=== PATIENT | male | born 1955 | race Hispanic/Latino ===

== ENCOUNTER 2021-08-07 11:45 | Outpatient (CLI) | payer MEDICARE | END 2021-08-07 11:46 | disposition home or self-care (01) | LOC: PET 11:45 | PROVIDERS: ATTEND Internal Medicine Hematology & Oncology | DX: C16.3 Malignant neoplasm of pyloric antrum (principal); D50.0 Iron deficiency anemia secondary to blood loss (chronic) | CPT/HCPCS: 78815; A9552 ==

== ENCOUNTER 2022-01-07 08:35 | Outpatient (CLI) | payer MEDICARE ==
[2022-01-07] MEDS ORDERED: Iopamidol 300 61% 50 ML VIAL FS ONE (09:09)
== END 2022-01-07 08:36 | disposition home or self-care (01) ==
LOC: RAD 08:35
PROVIDERS: ATTEND Internal Medicine Hematology & Oncology
DX: Z45.2 Encounter for adjustment and management of vascular access device (principal); T82.598A Other mechanical complication of other cardiac and vascular devices and implants, initial encounter; C16.3 Malignant neoplasm of pyloric antrum; D50.0 Iron deficiency anemia secondary to blood loss (chronic)
CPT/HCPCS: 36598; Q9967

== ENCOUNTER 2022-01-12 16:37 | Inpatient (IN) | payer MEDICARE ==
[2022-01-12 17:28] LABS: Hemoglobin 8.5 g/dL (14.0-18.0); Mean Corpuscular HGB CONC 34.7 g/dL (32.0-36.0); Mean Corpuscular Hemoglobin 33.8 pg (27.0-31.0); Mean Corpuscular Volume 97.3 fL (78.0-98.0); RBC Distribution Width 13.4 % (11.5-14.5); Red Blood Cell (RBC) Count 2.51 mill/uL (4.70-6.10)
[2022-01-12 17:36] LABS: Bacteria/HPF None Seen HPF (None Seen); Bilirubin Negative (Negative); Blood, Urine Trace (Negative); Clarity Clear (Clear); Glucose, Urine (Dipstick) Greater than 1000 mg/dL (Negative); Ketone, Urine Negative (Negative); Leukocyte Negative Leu/uL (Negative); Nitrite Negative (Negative); Protein, Urine (Dipstick) 30 mg/dL (Neg-Trace); RBC/HPF 0-3 HPF (0-3); Specific Gravity, Urine 1.023 (1.002-1.036); Squamous Epithelial 0-3 HPF (0-3); Urobilinogen Normal mg/dL (Less than 2); WBC/HPF 0-3 HPF (0-3)
[2022-01-12 17:40] LABS: ALT (SGPT) 37 U/L (8-55); AST (SGOT) 34 U/L (5-34); Alkaline Phosphatase 144 U/L (40-110); Anion Gap 15 mmol/L (10-20); BUN (Urea Nitrogen) 81 mg/dL (8.4-25.7); Bilirubin, Total 0.2 mg/dL (0.2-1.2); CK (CPK) 80 U/L (30-200); Calc. Creatinine Clearance 0 mL/min (70-130); Calcium 8.3 mg/dL (7.8-10.44); Carbon Dioxide 22 mmol/L (23-31); Chloride 98 mmol/L (98-107); Estimated GFR 36; Globulin 2.3 g/dL (2.4-3.5); Potassium 4.8 mmol/L (3.5-5.1); Protein, Total 5.3 g/dL (5.8-8.1); Sodium 130 mmol/L (136-145)
[2022-01-12 17:45] LABS: Band 3 % (5-11); Lymphocytes 5 % (21-51); MDiff Complete? YES; Mean Platelet Volume 10.3 fL (7.4-10.4); Microcytosis SLIGHT = 6-15 cells (100X) (0-5/hpf); Neutrophil 89 % (42-75); Nucleated RBC 1 % (0); Platelet Count 102 thou/uL (130-400); Platelet Morphology Comment Appears Decreased; Reactive Lymphocytes 3 % (0-10)
[2022-01-12 17:49] LABS: Glucose 748 mg/dL (80-115)
[2022-01-12] MEDS ORDERED: Insulin Regular 300 UNITS/3 ML VIAL ONE (18:17)
[2022-01-12] MEDS ORDERED: Piperacillin/Tazobactam 3.375 GM VIAL ONE (18:17)
[2022-01-12 18:41] LABS: Actual Bicarbonate (HCO3v) 22 mEq/L (22-28); Analyzer IN Cardio ER; Base Excess -3.3 mEq/L (-2.0 to +3.0); Calcium, Ionized (venous) 1.02 mmol/L (1.16-1.32); Chloride (VBG) 101 mmol/L (98-106); Potassium (VBG) 4.43 mmol/L (3.70-5.30); Sodium 128.7 mmol/L (133-146); pH (venous) 7.37 (7.32-7.43)
[2022-01-12] MEDS ORDERED: Ondansetron PF 4 MG/2 ML Vial IVP PRN (20:00)
[2022-01-12] MEDS ORDERED: Ondansetron ODT 4 MG TAB SL PRN (20:00)
[2022-01-12] MEDS ORDERED: Acetaminophen 325 MG TAB PO PRN (20:00)
[2022-01-12] MEDS ORDERED: Dextrose 5% in Water 1,000 ML IV PRN ×2 (20:23→20:50)
[2022-01-12] MEDS ORDERED: HumaLOG 300 UNITS/3 ML VIAL SC PRN (20:23)
[2022-01-12] MEDS ORDERED: Acetaminophen 650 MG Suppository PR PRN (20:23)
[2022-01-12] MEDS ORDERED: Dextrose 50% Abboject 50 ML SYRINGE SLOW IVP PRN ×2 (20:23→20:50)
[2022-01-12 20:31] LABS: Lactic Acid 2.5 mmol/L (0.5-2.2)
[2022-01-12] MEDS ORDERED: Metoprolol Tartrate 5 MG/5 ML VIAL ONE ×2 (22:13→22:19)
[2022-01-12] MEDS ORDERED: Digoxin 0.5 MG/2 ML AMP ONE (22:25)
[2022-01-12] MEDS ORDERED: Fentanyl 100 MCG/2 ML VIAL ONE (22:25)
[2022-01-13] MEDS: Sodium Chloride 0.9% 1,000 ML IV SCH ×4 (00:40→05:30)
[2022-01-13] MEDS: HumaLOG 300 UNITS/3 ML VIAL SC PRN ×7 (00:51→20:13)
[2022-01-13] MEDS ORDERED: Amiodarone 150 MG, Admixture Fee 1 EACH in Dextrose 5% in Water 100 ML IVPB SCH (01:00)
[2022-01-13] MEDS ORDERED: Enoxaparin Sodium 80 MG/0.8 ML SYRINGE SC SCH (01:00)
[2022-01-13] MEDS: Amiodarone 450 MG, Admixture Fee 1 EACH in Dextrose 5% in Water 250 ML IVPB SCH (01:21)
[2022-01-13 01:26] LABS: Chloride 95 mmol/L (98-107); Sodium 126 mmol/L (136-145)
[2022-01-13] MEDS: Piperacillin/Tazobactam 3.375 GM in Sodium Chloride 0.9% 100 ML IVPB SCH ×3 (01:32→15:44)
[2022-01-13 01:58] LABS: Glucose 445 mg/dL (80-115); Lactic Acid 1.7 mmol/L (0.5-2.2)
[2022-01-13 02:00] LABS: Anion Gap 10 mmol/L (10-20); Carbon Dioxide 19 mmol/L (23-31)
[2022-01-13 02:02] LABS: Calc. Creatinine Clearance 51 mL/min (70-130); Estimated GFR 51
[2022-01-13 02:03] LABS: BUN (Urea Nitrogen) 62 mg/dL (8.4-25.7)
[2022-01-13 03:50] LABS: Hemoglobin A1c 12.8 % (4.0-6.0)
[2022-01-13 04:26] LABS: Band 4 % (5-11); Hemoglobin 6.6 g/dL (14.0-18.0); Lymphocytes 6 % (21-51); MDiff Complete? YES; Mean Corpuscular HGB CONC 33.6 g/dL (32.0-36.0); Mean Corpuscular Hemoglobin 32.9 pg (27.0-31.0); Mean Corpuscular Volume 97.9 fL (78.0-98.0); Mean Platelet Volume 10.6 fL (7.4-10.4); Neutrophil 90 % (42-75); Platelet Count 75 thou/uL (130-400); Platelet Morphology Comment Appears Decreased; RBC Distribution Width 13.3 % (11.5-14.5); White Blood Cell (WBC) Count 11.6 thou/uL (4.8-10.8)
[2022-01-13] MEDS ORDERED: Insulin Glargine 30 UNITS/0.3 ML VIAL SC SCH (08:45)
[2022-01-13] MEDS ORDERED: Digoxin 0.5 MG/2 ML AMP ONE (08:50)
[2022-01-13] MEDS ORDERED: FLU VACC QS2022-23(65YR UP)/PF 240 MCG/0.7 ML SYRINGE IM ONE (09:00)
[2022-01-13] MEDS ORDERED: Enoxaparin Sodium 40 MG/0.4 ML SYRINGE SC SCH (09:00)
[2022-01-13] MEDS: Digoxin 0.5 MG/2 ML AMP SLOW IVP SCH ×3 (09:05→20:06)
[2022-01-13 10:33] LABS: Bilirubin, Total 0.2 mg/dL (0.2-1.2); Iron 146 ug/dL (65-175); Iron Binding Capacity, Total 184 mcg/dL (261-462); Sodium 140 mmol/L (136-145)
[2022-01-13 14:19] LABS: Reticulocyte Count 3.5 % (0.5-1.5)
[2022-01-13 14:35] LABS: Magnesium 1.9 mg/dL (1.6-2.6)
[2022-01-13 14:41] LABS: INR-International Normal Ratio 1.1; Prothrombin Time 13.9 sec (12.0-14.7)
[2022-01-13 14:42] LABS: PTT 24.5 sec (22.9-36.1)
[2022-01-13 14:55] LABS: Ferritin 424.48 ng/mL (22-322); Thyroid Stimulating Hormone 0.835 uIU/mL (0.35-4.94)
[2022-01-13] MEDS ORDERED: Metoprolol Tartrate 5 MG/5 ML VIAL ONE (15:43)
[2022-01-13] MEDS ORDERED: Metoprolol Tartrate 5 MG/5 ML VIAL IVP PRN (17:38)
[2022-01-14] MEDS: Piperacillin/Tazobactam 3.375 GM in Sodium Chloride 0.9% 100 ML IVPB SCH ×3 (01:16→16:58)
[2022-01-14] MEDS: Amiodarone 450 MG, Admixture Fee 1 EACH in Dextrose 5% in Water 250 ML IVPB SCH ×2 (01:17→13:20)
[2022-01-14 04:32] LABS: Anion Gap 14 mmol/L (10-20); BUN (Urea Nitrogen) 32 mg/dL (8.4-25.7); Calc. Creatinine Clearance 56 mL/min (70-130); Calcium 7.8 mg/dL (7.8-10.44); Carbon Dioxide 18 mmol/L (23-31); Chloride 111 mmol/L (98-107); Estimated GFR 57; Glucose 290 mg/dL (80-115); Potassium 4.1 mmol/L (3.5-5.1); Sodium 139 mmol/L (136-145)
[2022-01-14 04:52] LABS: #Lymphocytes 2.2 thou/uL (1.20-3.40); #Monocytes 0.1 thou/uL (0.11-0.59); #Neutrophils 7.4 thou/uL (1.40-6.50); %Basophils 0.1 % (0.0-1.0); %Eosinophils 0.2 % (0.0-10.0); %Lymphocytes 22.4 % (21.0-51.0); %Monocytes 0.6 % (0.0-10.0); %Neutrophils 76.7 % (42.0-75.0); Hemoglobin 9.1 g/dL (14.0-18.0); Mean Corpuscular HGB CONC 34.9 g/dL (32.0-36.0); Mean Corpuscular Volume 94.7 fL (78.0-98.0); Mean Platelet Volume 10.7 fL (7.4-10.4); Platelet Count 84 thou/uL (130-400); RBC Distribution Width 14.5 % (11.5-14.5); Red Blood Cell (RBC) Count 2.77 mill/uL (4.70-6.10); White Blood Cell (WBC) Count 9.7 thou/uL (4.8-10.8)
[2022-01-14] MEDS: HumaLOG 300 UNITS/3 ML VIAL SC PRN ×3 (06:13→20:03)
[2022-01-14] MEDS ORDERED: Insulin Glargine 30 UNITS/0.3 ML VIAL SC SCH ×2 (09:00→10:00)
[2022-01-15] MEDS: Piperacillin/Tazobactam 3.375 GM in Sodium Chloride 0.9% 100 ML IVPB SCH ×3 (01:03→16:30)
[2022-01-15] MEDS: HumaLOG 300 UNITS/3 ML VIAL SC PRN ×2 (05:55→21:15)
[2022-01-15 07:44] LABS: Anion Gap 11 mmol/L (10-20); BUN (Urea Nitrogen) 23 mg/dL (8.4-25.7); Calc. Creatinine Clearance 57 mL/min (70-130); Calcium 8.1 mg/dL (7.8-10.44); Carbon Dioxide 21 mmol/L (23-31); Chloride 109 mmol/L (98-107); Estimated GFR 58; Glucose 267 mg/dL (80-115); Potassium 3.6 mmol/L (3.5-5.1); Sodium 137 mmol/L (136-145)
[2022-01-15 08:03] LABS: #Lymphocytes 1.1 thou/uL (1.20-3.40); #Neutrophils 3.7 thou/uL (1.40-6.50); %Basophils 0.2 % (0.0-1.0); %Eosinophils 0.6 % (0.0-10.0); %Lymphocytes 22.3 % (21.0-51.0); %Monocytes 0.4 % (0.0-10.0); %Neutrophils 76.5 % (42.0-75.0); Hemoglobin 8.8 g/dL (14.0-18.0); MDiff Complete? YES; Mean Corpuscular HGB CONC 34.2 g/dL (32.0-36.0); Mean Corpuscular Hemoglobin 32.1 pg (27.0-31.0); Mean Corpuscular Volume 93.7 fL (78.0-98.0); Mean Platelet Volume 10.7 fL (7.4-10.4); Platelet Count 83 thou/uL (130-400); Platelet Morphology Comment Appears Decreased; Polychromasia SLIGHT = 2-3 cells (100X) (0-2/hpf); RBC Distribution Width 13.9 % (11.5-14.5); Red Blood Cell (RBC) Count 2.75 mill/uL (4.70-6.10); White Blood Cell (WBC) Count 4.9 thou/uL (4.8-10.8)
[2022-01-15] MEDS: Thiamine 100 MG TAB PO SCH (08:54)
[2022-01-15] MEDS: Folic Acid 1 MG TAB PO SCH (08:54)
[2022-01-15] MEDS ORDERED: PEGFILGRASTIM-JMDB 6 MG/0.6 ML SYRINGE SQ SCH ×2 (09:00→14:00)
[2022-01-15] MEDS ORDERED: Insulin Glargine 30 UNITS/0.3 ML VIAL SC SCH ×2 (09:00→10:00)
[2022-01-15 09:45] LABS: #Lymphocytes 1.1 thou/uL (1.20-3.40); #Neutrophils 3.6 thou/uL (1.40-6.50); %Basophils 0.2 % (0.0-1.0); %Lymphocytes 23.6 % (21.0-51.0); %Monocytes 0.4 % (0.0-10.0); %Neutrophils 74.9 % (42.0-75.0); Hemoglobin 8.9 g/dL (14.0-18.0); Mean Corpuscular HGB CONC 32.8 g/dL (32.0-36.0); Mean Corpuscular Volume 94.6 fL (78.0-98.0); Mean Platelet Volume 10.4 fL (7.4-10.4); Platelet Count 89 thou/uL (130-400); RBC Distribution Width 13.9 % (11.5-14.5); Red Blood Cell (RBC) Count 2.87 mill/uL (4.70-6.10); White Blood Cell (WBC) Count 4.8 thou/uL (4.8-10.8)
[2022-01-15 15:59] LABS: SARS-CoV-2 NAA Rapid Test Not Detected (NotDetected)
[2022-01-15] MEDS: Amiodarone 450 MG, Admixture Fee 1 EACH in Dextrose 5% in Water 250 ML IVPB SCH (21:53)
[2022-01-16] MEDS: Piperacillin/Tazobactam 3.375 GM in Sodium Chloride 0.9% 100 ML IVPB SCH ×3 (01:44→16:47)
[2022-01-16 04:33] LABS: Anion Gap 12 mmol/L (10-20); BUN (Urea Nitrogen) 19 mg/dL (8.4-25.7); Calc. Creatinine Clearance 63 mL/min (70-130); Calcium 7.9 mg/dL (7.8-10.44); Carbon Dioxide 20 mmol/L (23-31); Chloride 110 mmol/L (98-107); Estimated GFR 65; Glucose 189 mg/dL (80-115); Potassium 3.4 mmol/L (3.5-5.1); Sodium 139 mmol/L (136-145)
[2022-01-16 05:01] LABS: Band 6 % (5-11); Hemoglobin 8.3 g/dL (14.0-18.0); Lymphocytes 4 % (21-51); MDiff Complete? YES; Mean Corpuscular HGB CONC 32.9 g/dL (32.0-36.0); Mean Corpuscular Hemoglobin 31.1 pg (27.0-31.0); Mean Corpuscular Volume 94.4 fL (78.0-98.0); Mean Platelet Volume 10.8 fL (7.4-10.4); Neutrophil 90 % (42-75); Platelet Count 85 thou/uL (130-400); Platelet Morphology Comment Appears Decreased; RBC Distribution Width 13.7 % (11.5-14.5); Red Blood Cell (RBC) Count 2.68 mill/uL (4.70-6.10); White Blood Cell (WBC) Count 15.6 thou/uL (4.8-10.8)
[2022-01-16] MEDS: Thiamine 100 MG TAB PO SCH (09:44)
[2022-01-16] MEDS: Folic Acid 1 MG TAB PO SCH (09:44)
[2022-01-16] MEDS: Insulin Glargine 30 UNITS/0.3 ML VIAL SC SCH (09:45)
[2022-01-16] MEDS: HumaLOG 300 UNITS/3 ML VIAL SC PRN ×2 (11:08→16:47)
[2022-01-16] MEDS: Amiodarone 200 MG TAB PO SCH ×2 (15:31→20:37)
[2022-01-16] MEDS ORDERED: Atorvastatin Calcium 20 MG TAB PO SCH (21:00)
[2022-01-17] MEDS: Piperacillin/Tazobactam 3.375 GM in Sodium Chloride 0.9% 100 ML IVPB SCH ×2 (01:00→08:17)
[2022-01-17 04:31] LABS: Anion Gap 10 mmol/L (10-20); BUN (Urea Nitrogen) 17 mg/dL (8.4-25.7); Calc. Creatinine Clearance 67 mL/min (70-130); Calcium 7.9 mg/dL (7.8-10.44); Carbon Dioxide 22 mmol/L (23-31); Chloride 110 mmol/L (98-107); Estimated GFR 69; Glucose 135 mg/dL (80-115); Potassium 3.1 mmol/L (3.5-5.1); Sodium 139 mmol/L (136-145)
[2022-01-17 04:49] LABS: Band 10 % (5-11); Eosinophils 1 % (0-10); Hemoglobin 7.6 g/dL (14.0-18.0); Lymphocytes 8 % (21-51); MDiff Complete? YES; Mean Corpuscular HGB CONC 33.4 g/dL (32.0-36.0); Mean Corpuscular Hemoglobin 31.3 pg (27.0-31.0); Mean Corpuscular Volume 93.8 fL (78.0-98.0); Mean Platelet Volume 10.8 fL (7.4-10.4); Neutrophil 81 % (42-75); Platelet Count 91 thou/uL (130-400); Platelet Morphology Comment Appears Decreased; RBC Distribution Width 13.6 % (11.5-14.5); Red Blood Cell (RBC) Count 2.43 mill/uL (4.70-6.10); White Blood Cell (WBC) Count 9.8 thou/uL (4.8-10.8)
[2022-01-17 05:26] VITALS: BMI 28.1
[2022-01-17] MEDS: Thiamine 100 MG TAB PO SCH (08:17)
[2022-01-17] MEDS: Amiodarone 200 MG TAB PO SCH ×2 (08:17→15:32)
[2022-01-17] MEDS: Insulin Glargine 30 UNITS/0.3 ML VIAL SC SCH (08:17)
[2022-01-17] MEDS: Folic Acid 1 MG TAB PO SCH (08:17)
[2022-01-17] MEDS ORDERED: Potassium Chloride 20 MEQ TAB PO SCH (10:15)
[2022-01-17 12:45] VITALS: TEMP 98.6
== END 2022-01-17 16:10 | disposition home or self-care (01) | DRG 638 ==
LOC: ERS 16:37 → IMCU/EMU 19:30
PROVIDERS: ADMIT Internal Medicine; ATTEND Internal Medicine
PROC: 30233N1 Transfusion of Nonautologous Red Blood Cells into Peripheral Vein, Percutaneous Approach (ICD-10-PCS; principal; 2022-01-13)
DX: E11.65 Type 2 diabetes mellitus with hyperglycemia (principal); C16.9 Malignant neoplasm of stomach, unspecified; I48.92 Unspecified atrial flutter; N17.9 Acute kidney failure, unspecified; E87.20 Acidosis, unspecified; R65.10 Systemic inflammatory response syndrome (SIRS) of non-infectious origin without acute organ dysfunction; E87.1 Hypo-osmolality and hyponatremia; Z20.822 Contact with and (suspected) exposure to COVID-19; I25.10 Atherosclerotic heart disease of native coronary artery without angina pectoris; I10 Essential (primary) hypertension; I48.91 Unspecified atrial fibrillation; D64.81 Anemia due to antineoplastic chemotherapy; T45.1X5A Adverse effect of antineoplastic and immunosuppressive drugs, initial encounter; D53.9 Nutritional anemia, unspecified; D69.59 Other secondary thrombocytopenia; E86.1 Hypovolemia; D75.9 Disease of blood and blood-forming organs, unspecified; R19.5 Other fecal abnormalities; Z88.0 Allergy status to penicillin; Z98.890 Other specified postprocedural states; Z28.21 Immunization not carried out because of patient refusal; Z95.1 Presence of aortocoronary bypass graft; Z87.11 Personal history of peptic ulcer disease; Z82.49 Family history of ischemic heart disease and other diseases of the circulatory system; Z79.899 Other long term (current) drug therapy; Z79.84 Long term (current) use of oral hypoglycemic drugs; T50.2X5A Adverse effect of carbonic-anhydrase inhibitors, benzothiadiazides and other diuretics, initial encounter; Z87.891 Personal history of nicotine dependence
CPT/HCPCS: 36415; 36416; 36430; 71045; 74176; 80048; 80053; 81003; 81015; 82010; 82247; 82274; 82550; 82728; 82805; 83010; 83036; 83540; 83550; 83605; 83615; 83690; 83735; 83935; 84443; 84484; 85025; 85046; 85610; 85730; 86850; 86900; 86901; 87040; 93005; 93306; 96361; 96374; 96375; J0282; J1160; J1650; J1815; J2543; J3010; J3490; J7050; J7070; P9016; Q5108; U0002

== ENCOUNTER 2022-01-28 18:33 | Emergency (ER) | payer MEDICARE ==
[~2022-01-28 18:33] MED LIST: Iopamidol-370 76% 500 ML 1 ML ONE
[2022-01-28 19:25] LABS: Hemoglobin 8.3 g/dL (14.0-18.0); Mean Corpuscular HGB CONC 32.5 g/dL (32.0-36.0); Mean Corpuscular Hemoglobin 30.4 pg (27.0-31.0); Mean Corpuscular Volume 93.8 fL (78.0-98.0); Mean Platelet Volume 10.1 fL (7.4-10.4); Platelet Count 126 thou/uL (130-400); RBC Distribution Width 15.2 % (11.5-14.5); Red Blood Cell (RBC) Count 2.73 mill/uL (4.70-6.10); White Blood Cell (WBC) Count 26.4 thou/uL (4.8-10.8)
[2022-01-28 19:36] LABS: ALT (SGPT) 14 U/L (8-55); AST (SGOT) 21 U/L (5-34); Albumin 2.6 g/dL (3.4-4.8); Alkaline Phosphatase 161 U/L (40-110); Anion Gap 10 mmol/L (10-20); BUN (Urea Nitrogen) 23 mg/dL (8.4-25.7); Bilirubin, Total 0.2 mg/dL (0.2-1.2); Calc. Creatinine Clearance 0 mL/min (70-130); Calcium 7.2 mg/dL (7.8-10.44); Carbon Dioxide 23 mmol/L (23-31); Chloride 109 mmol/L (98-107); Estimated GFR 75; Globulin 2.2 g/dL (2.4-3.5); Glucose 193 mg/dL (80-115); Lipase 75 U/L (8-78); Potassium 3.4 mmol/L (3.5-5.1); Protein, Total 4.8 g/dL (5.8-8.1); Sodium 139 mmol/L (136-145)
[2022-01-28 19:39] LABS: Band 10 % (5-11); Lymphocytes 5 % (21-51); MDiff Complete? YES; Neutrophil 85 % (42-75); Platelet Morphology Comment Appears Decreased; Polychromasia SLIGHT = 2-3 cells (100X) (0-2/hpf)
[2022-01-28 21:13] LABS: Bacteria/HPF None Seen HPF (None Seen); Bilirubin Negative (Negative); Blood, Urine Trace (Negative); Clarity Clear (Clear); Glucose, Urine (Dipstick) 500 mg/dL (Negative); Ketone, Urine Negative (Negative); Leukocyte Negative Leu/uL (Negative); Nitrite Negative (Negative); Protein, Urine (Dipstick) 200 mg/dL (Neg-Trace); RBC/HPF 0-3 HPF (0-3); Specific Gravity, Urine 1.023 (1.002-1.036); Squamous Epithelial 0-3 HPF (0-3); Urobilinogen Normal mg/dL (Less than 2); WBC/HPF 0-3 HPF (0-3)
[2022-01-28] MEDS ORDERED: Mag-Al 1200 mg/1200 mg/30 ML UDCUP ONE (23:09)
== END 2022-01-29 02:04 | disposition home or self-care (01) ==
LOC: ERS 18:33
DX: R10.13 Epigastric pain (principal); I10 Essential (primary) hypertension; E11.9 Type 2 diabetes mellitus without complications
CPT/HCPCS: 36415; 71045; 74177; 80053; 81003; 81015; 83690; 83880; 84484; 85025; 93005; J1642; Q9967

== ENCOUNTER 2022-01-31 09:00 | Outpatient (CLI) | payer MEDICARE | END 2022-01-31 09:01 | LOC: PET 09:00 | PROVIDERS: ATTEND Internal Medicine Hematology & Oncology | DX: C16.3 Malignant neoplasm of pyloric antrum (principal); D50.0 Iron deficiency anemia secondary to blood loss (chronic) | CPT/HCPCS: 78815; A9552 ==

== ENCOUNTER 2022-07-22 10:07 | Outpatient (CLI) | payer MEDICARE ==
[2022-07-22] MEDS ORDERED: Iopamidol 370 76% 100 ML VIAL ONE (10:33)
== END 2022-07-22 10:08 | disposition home or self-care (01) ==
LOC: CT 10:07
PROVIDERS: ATTEND Internal Medicine Hematology & Oncology
DX: C16.3 Malignant neoplasm of pyloric antrum (principal); D50.0 Iron deficiency anemia secondary to blood loss (chronic); I89.8 Other specified noninfective disorders of lymphatic vessels and lymph nodes; Z98.890 Other specified postprocedural states
CPT/HCPCS: 71260; 74177; 82565; Q9967

== ENCOUNTER 2022-10-15 08:49 | Outpatient (CLI) | payer MEDICARE ==
[2022-10-15] MEDS ORDERED: Iopamidol 370 76% 100 ML VIAL ONE (09:03)
== END 2022-10-15 08:50 | disposition home or self-care (01) ==
LOC: BICCT 08:49
PROVIDERS: ATTEND Internal Medicine Hematology & Oncology
DX: C16.3 Malignant neoplasm of pyloric antrum (principal); M53.3 Sacrococcygeal disorders, not elsewhere classified
CPT/HCPCS: 71260; 74177; 82565; Q9967

== ENCOUNTER → 2022-11-13 | Outpatient (CLI) | payer MEDICARE | LOC: PET 11:00 | PROVIDERS: ATTEND Internal Medicine Hematology & Oncology | DX: C16.3 Malignant neoplasm of pyloric antrum (principal) | CPT/HCPCS: 78815; A9552 ==

== ENCOUNTER 2022-12-10 10:01 | Day surgery (SDC) | payer MEDICARE ==
[2022-12-10 10:35] LABS: #Monocytes 0.6 thou/uL (0.11-0.59); #Neutrophils 12.3 thou/uL (1.40-6.50); %Basophils 0.1 % (0.0-1.0); %Lymphocytes 7.5 % (21.0-51.0); %Monocytes 4.1 % (0.0-10.0); %Neutrophils 87.9 % (42.0-75.0); Hematocrit 31.7 % (42.0-52.0); Hemoglobin 10.7 g/dL (14.0-18.0); Mean Corpuscular HGB CONC 33.8 g/dL (32.0-36.0); Mean Corpuscular Hemoglobin 32.7 pg (27.0-31.0); Mean Corpuscular Volume 96.9 fl (78.0-98.0); Mean Platelet Volume 10.2 fL (7.4-10.4); Platelet Count 240 10x3/uL (130-400); RBC Distribution Width 13.1 % (11.5-14.5); Red Blood Cell (RBC) Count 3.27 mill/uL (4.70-6.10)
[2022-12-10 10:43] LABS: INR-International Normal Ratio 1.1; Prothrombin Time 14.8 sec (12.0-14.7)
[2022-12-10 10:44] LABS: PTT 44.9 sec (22.9-36.1)
[2022-12-10 13:14] VITALS: BP 177/95; TEMP 99.8
== END 2022-12-10 13:34 | disposition home or self-care (01) ==
LOC: CT 10:01
PROVIDERS: ATTEND Internal Medicine Hematology & Oncology
PROC: 0PB Upper Bones, Excision (ICD-10-PCS; principal; 2022-12-10)
DX: C16.3 Malignant neoplasm of pyloric antrum (principal); C79.51 Secondary malignant neoplasm of bone; Z88.0 Allergy status to penicillin; E11.9 Type 2 diabetes mellitus without complications; D64.9 Anemia, unspecified; Z86.74 Personal history of sudden cardiac arrest; Z79.02 Long term (current) use of antithrombotics/antiplatelets; Z79.84 Long term (current) use of oral hypoglycemic drugs; Z79.4 Long term (current) use of insulin; Z79.899 Other long term (current) drug therapy
CPT/HCPCS: 20225; 77012; 85610; 85730; 88307; 88333; 88334; 88341; 88342

== ENCOUNTER 2023-02-07 10:24 | Day surgery (SDC) | payer MEDICARE ==
[2023-02-07] MEDS ORDERED: cloNIDine 0.1 MG TAB PO SCH (12:15)
[2023-02-07] MEDS ORDERED: cloNIDine 0.1 MG TAB ONE (12:20)
[2023-02-07] MEDS ORDERED: diphenhydrAMINE 25 MG CAP PO SCH (12:30)
[2023-02-07] MEDS ORDERED: Acetaminophen 500 MG TAB PO SCH (12:30)
[2023-02-07] MEDS ORDERED: diphenhydrAMINE 25 MG CAP ONE (13:13)
[2023-02-07] MEDS ORDERED: Acetaminophen 500 MG TAB ONE (13:13)
[2023-02-07] MEDS ORDERED: FLU VACC QS2023(65UP)/MF59C/PF 60 MCG/0.5 ML SYRINGE IM ONE (16:00)
[2023-02-07 17:12] VITALS: BP 133/88; TEMP 98.1
== END 2023-02-07 17:00 | disposition home or self-care (01) ==
LOC: ONC/OP 10:24
PROVIDERS: ATTEND Internal Medicine Hematology & Oncology
DX: D64.9 Anemia, unspecified (principal); D69.59 Other secondary thrombocytopenia
CPT/HCPCS: 36430; 86850; 86900; 86901; 86920; 90694; G0008; P9016; 90471

== ENCOUNTER 2023-04-23 11:00 | Outpatient (CLI) | payer MEDICARE, OTHER | END 2023-04-23 11:01 | LOC: PET 11:00 | PROVIDERS: ATTEND Internal Medicine Hematology & Oncology | DX: C16.3 Malignant neoplasm of pyloric antrum (principal); C79.51 Secondary malignant neoplasm of bone; R59.0 Localized enlarged lymph nodes | CPT/HCPCS: 78815; A9552 ==